=== PATIENT | male | born 1970 | race African-American/Black ===

== ENCOUNTER 2018-01-03 19:04 | Emergency (ER) | payer SELFPAY ==
[~2018-01-03] VITALS: Ht 180.3 cm; Wt 123.0 kg
[2018-01-03] MEDS ORDERED: KETOROLAC 30MG/ML VIAL IV STA (23:59)
[2018-01-04] MEDS ORDERED: ASPIRIN 81MG TABLET PO ONE
[2018-01-04] MEDS ORDERED: VISCOUS LIDOCAINE 2% 15 ML UDC PO ONE
[2018-01-04] MEDS ORDERED: MAGNESIUM/ALUMINUM HYDROXIDE/SIMETHICONE 30ML UDC PO ONE
[2018-01-04 00:37] LABS: EOSINOPHILS % 1.4 % (0.0-5.0); HEMATOCRIT. 41.4 % (42.0-52.0); HEMOGLOBIN. 13.5 g/dL (14.0-18.0); LYMPHOCYTES % 37.6 % (20.0-50.0); MEAN CORPUSCULAR HEMOGLOBIN 30.1 pg (28.0-32.0); MEAN CORPUSCULAR VOLUME 92.5 fL (80.0-94.0); MEAN PLATELET VOLUME 8.5 fl (7.4-10.4); MONOCYTES % 9.3 % (2.0-8.0); NEUTROPHILS % 50.7 % (40.0-76.0); PLATELET 243 x1000/uL (130-400); RED BLOOD CELL COUNT 4.48 mill/uL (4.7-6.1); RED CELL DISTRIBUTION WIDTH 13.8 % (11.6-14.6)
[2018-01-04 00:43] LABS: PROTHROMBIN TIME 10.7 sec (9.4-11.6)
[2018-01-04 00:47] LABS: CHLORIDE 106 mEq/L (98-107)
[2018-01-04 00:52] LABS: TROPONIN I < 0.02 ng/mL (0.00-0.04)
[2018-01-04 07:41] VITALS: BP 150/90
== END 2018-01-04 07:44 | disposition home or self-care (01) ==
LOC: ER 19:04
DX: R07.89 Other chest pain (principal); H40.9 Unspecified glaucoma; R06.02 Shortness of breath; F12.10 Cannabis abuse, uncomplicated
CPT/HCPCS: 36415; 71045; 80053; 83880; 84484; 85025; 85610; 93005; 96374; 99285; J1885; Z7610

== ENCOUNTER 2022-05-11 10:35 | Emergency (ER) | payer OTHER ==
[~2022-05-11] VITALS: Ht 185.4 cm; Wt 115.0 kg
[2022-05-11] MEDS ORDERED: BACITRACIN ZINC OINT UDPKT TOP ONE (11:00)
[2022-05-11] MEDS ORDERED: TETANUS, DIPHTHERIA, PERTUSSIS VAC/PF 0.5ML (>10YR OLD) IM ONE (11:00)
[2022-05-11] MEDS ORDERED: LIDOCAINE HCL/PF 1% 10 MG/ML 5ML VIAL INFIL ONE (11:00)
[2022-05-11] MEDS ORDERED: ACETAMINOPHEN WITH CODEINE 300/30MG TABLET PO ONE (11:00)
[2022-05-11] MEDS ORDERED: AMOXICILLIN/POTASSIUM CLAVULANATE 875/125MG TAB PO ONE (11:15)
[2022-05-11] MEDS ORDERED: IBUPROFEN 800MG TABLET PO ONE (11:45)
[2022-05-11] MEDS ORDERED: IBUP-2029 MT (12:55)
[2022-05-11] MEDS ORDERED: AMOX1TAB16 MT (12:55)
[2022-05-11 13:32] VITALS: BP 127/75
== END 2022-05-11 13:42 ==
LOC: ER 10:57 → EDSEX 10:57 → ER 13:42
DX: S51.811A Laceration without foreign body of right forearm, initial encounter (principal); S50.811A Abrasion of right forearm, initial encounter; H40.9 Unspecified glaucoma; W54.0XXA Bitten by dog, initial encounter; Y93.89 Activity, other specified; Y92.9 Unspecified place or not applicable
CPT/HCPCS: 12001; 73090; 73590; 90471; 90715; 99284; J3490